=== PATIENT | female | born 1975 | race Caucasian/White ===

== ENCOUNTER 2018-01-07 09:07 | Outpatient (CLI) | payer OTHER ==
[~2018-01-07 09:07] MED LIST: FLOVENT13 G1 IH; TUSSI PRES-B L120 M1 PO; ZITHROMAX TRI-500 MG PO
== END 2018-01-07 09:19 | disposition home or self-care (01) ==
LOC: SONOGRAMA 09:07
DX: R10.2 Pelvic and perineal pain (principal)

== ENCOUNTER 2019-06-02 11:20 | Emergency (ER) | payer OTHER ==
[~2019-06-02] VITALS: Ht 162.6 cm; Wt 53.5 kg
== END 2019-06-02 15:44 | disposition home or self-care (01) ==
LOC: ER 11:20
DX: K29.00 Acute gastritis without bleeding (principal)

== ENCOUNTER 2020-02-29 12:15 | Outpatient (CLI) | payer OTHER | END 2020-02-29 12:30 | disposition home or self-care (01) | LOC: SONOGRAMA 12:15 → MAMO-SONO 12:15 → SONOGRAMA 12:30 | DX: N92.0 Excessive and frequent menstruation with regular cycle (principal) ==